=== PATIENT | female | born 1970 | race Two or more races ===

== ENCOUNTER 2017-05-20 12:18 | Outpatient (CLI) | payer OTHER ==
[~2017-05-20 12:18] MED LIST: CIPRO500 MG PO; KETO10TA2 PO; LEVSIN/SL0.125 MG SL; TAPAZOLE10 MG
== END 2017-05-20 16:47 | disposition home or self-care (01) ==
LOC: SONOGRAMA 12:18
DX: E03.8 Other specified hypothyroidism (principal)

== ENCOUNTER 2017-07-09 09:14 | Outpatient (CLI) | payer OTHER | END 2017-07-09 09:18 | disposition home or self-care (01) | LOC: SONOGRAMA 09:14 | DX: E04.1 Nontoxic single thyroid nodule (principal) ==

== ENCOUNTER 2017-12-02 14:14 | Outpatient (CLI) | payer OTHER | END 2017-12-02 16:58 | disposition home or self-care (01) | LOC: TOM 14:14 | DX: M51.16 Intervertebral disc disorders with radiculopathy, lumbar region (principal) ==

== ENCOUNTER → 2017-12-22 | Emergency (ER) | payer OTHER ==
[~2017-12-22] VITALS: Ht 152.4 cm; Wt 52.2 kg
== END | disposition home or self-care (01) ==
LOC: ER 12:00
DX: K52.89 Other specified noninfective gastroenteritis and colitis (principal)

== ENCOUNTER 2018-02-03 10:02 | Outpatient (CLI) | payer OTHER | END 2018-02-03 10:18 | disposition home or self-care (01) | LOC: MRI 10:02 | DX: M54.5 Low back pain (principal) | CPT/HCPCS: 72148 ==

== ENCOUNTER → 2019-09-05 | Outpatient (CLI) | payer OTHER | END | disposition home or self-care (01) | LOC: MAMO-SONO 10:45 | PROVIDERS: ATTEND Obstetrics & Gynecology | DX: Z12.31 Encounter for screening mammogram for malignant neoplasm of breast (principal); N60.11 Diffuse cystic mastopathy of right breast; N60.12 Diffuse cystic mastopathy of left breast ==